=== PATIENT | male | born 1990 | race Caucasian/White ===

== ENCOUNTER 2019-03-10 23:59 | Emergency (ER) | payer BC ==
[2019-03-11] MEDS ORDERED: Acetaminophen 500 MG TAB ONE (01:17)
--- NOTE | 2019-03-11 07:28 | RAD ---
EXAM: Chest 2 views: HISTORY: Chest pain; anxiety attack COMPARISON: None. FINDINGS: There is a normal-sized cardiomediastinal silhouette. There is no evidence of consolidation, mass, or pleural effusion. The bones are unremarkable. IMPRESSION: No evidence of acute cardiopulmonary disease
== END 2019-03-11 01:22 | disposition home or self-care (01) ==
LOC: ERS 23:59
DX: F41.9 Anxiety disorder, unspecified (principal); F32.9 Major depressive disorder, single episode, unspecified; F90.9 Attention-deficit hyperactivity disorder, unspecified type; F17.200 Nicotine dependence, unspecified, uncomplicated
CPT/HCPCS: 71046; 93005